=== PATIENT | male | born 2000 | race Caucasian/White ===

== ENCOUNTER 2023-01-30 14:53 | Emergency (ER) | payer OTHER, SELFPAY ==
--- NOTE | ~2023-01-30 | XR_ITS ---
EXAMINATION: XR chest 2V 01/30/2023 18:26 INDICATION: Shortness of breath and chest pain PROCEDURE: 2 view chest COMPARISON: No prior studies for comparison. FINDINGS: The lungs are clear. The cardiomediastinal silhouette is within normal limits. There are no pleural effusions. There is no pneumothorax suspected. IMPRESSION: 1: NO ACUTE CARDIOPULMONARY DISEASE. Reviewed, dictated and finalized at location A.
[2023-01-30 15:09] VITALS: BP 123/61; PULSE 74; RESP 16; TEMP 36.6; O2SAT 100
[2023-01-30 16:30] VITALS: BP 145/63; PULSE 61; RESP 18; TEMP 36.4; O2SAT 99
--- NOTE | 2023-01-30 18:00 | ECG_ITS ---
Measurements Intervals [place] Rate: 50 P: 41 NE: 128 QRS: 44 QRSD: 94 T: 44 QT: 377 QTc: 347 Interpretive Statements SINUS BRADYCARDIA NO PREVIOUS ECG AVAILABLE FOR COMPARISON Electronically Signed On 01-30-2023 18:41:20 CDT by Joann Lion M.D.
--- NOTE | 2023-01-30 18:02 | ED.GENADULT ---
HPI - General Adult General Chief complaint: Unspecified Stated complaint: Upper left torso pain Time Seen by Provider: 01/30/23 17:53 History of Present Illness HPI narrative: Patient is a 22-year-old male here for evaluation of left upper torso pain since this morning. Patient states the pain is described as a soreness, not present around his left rib cage, worse with certain movements of the torso and with palpation. He has had no shortness of breath. Patient states that when he first noticed these episodes he felt very anxious and started to feel sweaty and panicked, felt like he might pass out. That lasted for several seconds before resolving. Patient took a Benadryl for his pain and is currently at a 0 but does come on when he moves his torso. Related Data Allergies Allergy/AdvReac Type Severity Reaction Status Date / Time No Known Allergies Allergy Verified 01/30/23 15:14 Review of Systems Review of Systems: Gen.: Reports presyncope. Denies fevers or chills Eyes: Denies eye pain or visual change ENT: Denies congestion Respiratory: Denies shortness of breath or cough CV: Denies chest pain or palpitations GI: Denies abdominal pain nausea, emesis or diarrhea denies burning, urgency, frequency or hematuria Musculoskeletal: Reports pain in the left upper torso Neuro: Denies numbness, tingling, weakness or focal weakness Skin: Denies rash Except as documented, all other systems reviewed and negative Exam Narrative: APPEARANCE: Well appearing, no pain in distress, well-nourished. Head: Normocephalic and atraumatic. EYES: PERRLA/EOMI, conjunctivae clear NOSE: No nasal drainage EARS: External ear normal in appearance THROAT: Oropharynx is clear. Mucous membranes are moist. NECK: Supple. No adenopathy, no masses. RESPIRATORY: Airway patent, respirations nonlabored. Clear to auscultation bilaterally, no rales, rhonchi, wheezing. CARDIOVASCULAR: Regular rate and rhythm without murmurs, rubs, or gallops. ABDOMINAL: Normoactive bowel sounds. Soft, nontender, nondistended. No rebound tenderness or guarding. MUSCULOSKELETAL: There is tenderness to palpation along the left posterior rib line under the axilla . No overlying deformity. Extremities are warm and well-perfused. Moves all extremities well. No edema. NEURO: Normal speech. No focal neurologic deficits. SKIN: Skin is warm and dry. No rashes. PSYCHIATRIC: Normal affect/mood. Course Vital Signs Vital signs: Vital Signs Temperature 97.8 F 01/30/23 15:09 Pulse Rate 74 01/30/23 15:09 Respiratory Rate 16 01/30/23 15:09 Blood Pressure 123/61 01/30/23 15:09 Pulse Oximetry 100 01/30/23 15:09 Oxygen Delivery Room Air 01/30/23 15:09 Temperature 97.5 F L 01/30/23 16:30 Pulse Rate 64 01/30/23 18:57 Respiratory Rate 18 01/30/23 16:30 Blood Pressure 126/74 01/30/23 18:57 Pulse Oximetry 99 01/30/23 18:57 Oxygen Delivery Room Air 01/30/23 15:09 Medical Decision Making MDM Narrative Medical decision making narrative: 22-year-old male here for evaluation of chest pain over the past day, seems consistent with costochondritis given location and being worse with palpation and movement of the thorax. His EKG is normal and his chest x-ray is normal as well. Heart lungs are clear throughout. Patient is currently pain-free. No indication for laboratory testing at this time. He was discharged home to follow-up with his primary care doctor. Return precautions were discussed and he voiced understanding. Vital Signs Vital Signs: Vital Signs Temperature 97.8 F 01/30/23 15:09 Pulse Rate 74 01/30/23 15:09 Respiratory Rate 16 01/30/23 15:09 Blood Pressure 123/61 01/30/23 15:09 Pulse Oximetry 100 01/30/23 15:09 Oxygen Delivery Room Air 01/30/23 15:09 Temperature 97.5 F L 01/30/23 16:30 Pulse Rate 64 01/30/23 18:57 Respiratory Rate 18 01/30/23 16:30 Blood Pressure 126/74 01/30/23 18:57 Pulse Oximetry 99
[2023-01-30 18:57] VITALS: BP 126/74; PULSE 64; O2SAT 99
== END 2023-01-30 18:58 | disposition home or self-care (01) ==
LOC: ANHED 18:48
PROVIDERS: Emergency Provider Physician Assistant
DX: M94.0 Chondrocostal junction syndrome [Tietze] (principal)
CPT/HCPCS: 71046; 93005; 99283